=== PATIENT | male | born 1950 | race Two or more races ===

== ENCOUNTER 2024-06-16 13:08 | Emergency (ER) | payer MEDICARE, MEDICAID, SELFPAY ==
[2024-06-16 13:24] VITALS: BP 181/88; PULSE 62; RESP 18; TEMP 36.6; O2SAT 99
--- NOTE | 2024-06-16 13:32 | XR_ITS ---
Examination: PA lateral chest 2 views TECHNIQUE: Upright PA lateral chest 2 views Exam date and time: June 16, 2024 1346 hours INDICATIONS: Chest pain and shortness of breath intermittent 20 years FINDINGS: Normal heart size Mild hyperexpansion No pneumonia or pulmonary edema IMPRESSION: Mild hyperexpansion
--- NOTE | 2024-06-16 13:32 | EKG_ITS ---
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
--- NOTE | 2024-06-16 13:32 | PD.EDRME ---
Rapid Medical Screening Exam E Arrival date/time: 06/16/24 13:08 73-year-old male presents to the emergency department complains of cough, congestion, chest pain Chief Complaint: Chest Pain Time Seen by Provider: 06/16/24 13:18 Vital signs: Vital Signs Temperature 97.9 F 06/16/24 13:24 Pulse Rate 62 06/16/24 13:24 Respiratory Rate 18 06/16/24 13:24 Blood Pressure 181/88 H 06/16/24 13:24 Pulse Oximetry (%) 99 06/16/24 13:24 Oxygen Delivery Method Room Air 06/16/24 13:24
[2024-06-16 14:16] LABS: Basophils # (Auto) 0.1 Thou/mm3 (0.0-0.2); Basophils % (Auto) 1 % (0-2.5); Eosinophils # (Auto) 0.3 Thou/mm3 (0.0-0.5); Eosinophils % (Auto) 5 % (0-10); Hemoglobin 16.9 g/dL (13.5-16.0); Immature Granulocytes % (Auto) 0 % (0-0); Immature Granulocytes Auto 0.02 Thou/mm3 (0.00-0.00); Lymphocytes # (Auto) 2.3 Thou/mm3 (1.0-4.8); Lymphocytes % (Auto) 34 % (10-50); Mean Corpuscular HGB Conc 34.5 g/dl (31.0-37.0); Mean Corpuscular Hemoglobin 30.5 pg (25.0-35.0); Mean Corpuscular Volume 88 fL (80-100); Monocytes # (Auto) 0.6 Thou/mm3 (0.0-0.8); Monocytes % (Auto) 9 % (0-12); Neutrophils # (Auto) 3.5 Thou/mm3 (1.8-7.7); Neutrophils % (Auto) 51 % (37-80); Nucleated Red Blood Cell % 0 /100 WBC (0); Platelet Count 316 Thou/mm3 (140-440); RDW Standard Deviation 41.3 fL (35.1-43.9); Red Blood Count 5.54 Miln/mm3 (4.50-5.90); White Blood Count 6.8 Thou/mm3 (3.8-10.6)
[2024-06-16 14:38] LABS: INR 1.1 (0.9-1.3); Partial Thromboplastin Time 25.7 Seconds (22.0-36.0); Prothrombin Time 11.8 Seconds (9.0-12.2)
[2024-06-16 14:40] LABS: Alanine Aminotransferase 13 U/L (10-49); Albumin, Serum 4.5 gm/dL (3.4-4.8); Albumin/Globulin Ratio 2.8 (1.2-2.2); Alkaline Phosphatase 93 U/L (46-116); Anion Gap 7 (7-16); Aspartate Amino Transferase 20 U/L (0-34); B-Type Natriuretic Peptide 60 pg/mL (0-100); BUN/Creatinine Ratio 11 Ratio (12-20); Bilirubin,Total 1.8 mg/dL (0.3-1.2); Blood Urea Nitrogen 13 mg/dL (9-23); Carbon Dioxide 26.9 mMol/L (20.0-31.0); Chloride 107 mMol/L (98-107); Creatinine (Component) 1.2 mg/dL (0.6-1.3); Globulin 1.6 gm/dL (2.3-3.5); Glucose 103 mg/dL (74-106); Magnesium 2.3 mg/dL (1.6-2.6); Osmolality,Calculated 281 (275-295); Potassium 5.3 mMol/L (3.4-5.1); Sodium 141 mMol/L (136-145); Total Protein 6.1 gm/dL (5.7-8.2); Troponin I < 0.020 ng/mL (0.0-0.045); eGFR > 60 See Note
--- NOTE | 2024-06-16 15:58 | EKG_ITS ---
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
[2024-06-16 16:39] VITALS: BP 170/88; PULSE 58; RESP 18; TEMP 36.6; O2SAT 98
--- NOTE | 2024-06-16 17:06 | PD.EDADULT ---
ED General RME/HPI General Chief complaint: Chest Pain Stated complaint: CHEST/BACK PAIN, COUGH WITH PHLEGM, SOB Time Seen by Provider: 06/16/24 13:18 Arrival date/time: 06/16/24 13:08 CC: Chest pain and coughing up phlegm HPI ongoing for 1 year. Patient is here now because the last time this started he had pneumonia. Patient denies any cough shortness of breath or difficulty breathing. No other complaints at this time. Chest pain is more of a chest pressure 1-2 on a 10 scale. RME / HPI RME / HPI narrative: 06/16/24 13:08 73-year-old male presents to the emergency department complains of cough, congestion, chest pain Related Data Allergies Allergy/AdvReac Type Severity Reaction Status Date / Time No Known Allergies Allergy Verified 06/16/24 13:11 Review of Systems Review of Systems Narrative Review of Systems: GEN: No fever, no chills, no weight loss EYES: No discharge, no visual changes, no pain HEENT: No ear pain, no congestion, no sore throat PULM: No shortness of breath, no cough, no congestion CV: + chest pain, no dyspnea on exertion, no palpitations GI: No nausea, no vomiting, no diarrhea, no pain, no constipation : No frequency, no urgency, no dysuria MUSC/SKEL: No joint pain, no back pain SKIN: No rash PSYCH: No hallucinations, no depression HEME/LYMPH: No easy bleeding or bruising tendencies NEURO: No weakness, no headache Past Medical History Social History SMOKING STATUS: Never smoker ED Exam Narrative Physical exam: [General thin, but not in any acute distress Head normocephalic HEENT: Within acceptable limits Neck is supple nontender Chest equal chest rise nontender to palpation Respiratory: Clear to auscultation no wheezes crackles or rubs CV: Rate rhythm is regular no murmurs rubs or clicks Abdomen is soft nontender no masses positive bowel sounds all 4 quadrants Back: No CVA tenderness no spinous process tenderness from cervical spine thoracic and lumbar spine Skin: Intact no petechiae rash induration ulceration or crepitus Extremities: Moving all extremity against resistance cap refill less than 2 seconds neurosensory intact Neuro: Awake alert oriented x3 Glascow coma 15 no focal deficits] Course Quality Measures none Orders Category Date Time Status Bedside COVID-19 Antigen Test NOW Care 06/16/24 13:32 Active Bedside Influenza A&B Antigen Test NOW Care 06/16/24 13:32 Completed EKG (ED ONLY) *Do not use* NOW Care 06/16/24 13:32 Completed EKG (ED ONLY) *Do not use* NOW Care 06/16/24 15:58 Completed EKG (ED Only) Stat Exams 06/16/24 13:32 Draft EKG (ED Only) Stat Exams 06/16/24 15:58 Draft XR chest 2V Stat Exams 06/16/24 13:32 Completed B-Type Natriuretic Peptide Stat Lab 06/16/24 14:05 Completed CBC Stat Lab 06/16/24 14:05 Completed Comprehensive Metabolic Panel Stat Lab 06/16/24 14:05 Completed Magnesium Stat Lab 06/16/24 14:05 Completed Partial Thromboplastin Time Stat Lab 06/16/24 14:05 Completed Prothrombin Time with INR Stat Lab 06/16/24 14:05 Completed Troponin I Stat Lab 06/16/24 14:05 Completed Troponin I Stat Lab 06/16/24 16:20 Received Vital Signs Vital signs: Vital Signs Temperature 97.9 F 06/16/24 13:24 Pulse Rate 62 06/16/24 13:24 Respiratory Rate 18 06/16/24 13:24 Blood Pressure 181/88 H 06/16/24 13:24 Pulse Oximetry (%) 99 06/16/24 13:24 Oxygen Delivery Method Room Air 06/16/24 13:24 [facility] Patient data External records reviewed:: [facility] previous records Clinical information provided by:: patient and spouse Social determinants that could affect healthcare access:: none Patient has the following chronic illnesses:: None How is presenting disease/condition affected by chronic disease/condition?: uneffected by Evaluation data The following diagnostics were reviewed and interpreted by me:: lab results, radiology exam(s) and EKG tracing(s) Lab and/or radiology exams considered but not ordered:: EKG performed at 1346 shows a ventricular rate of 5 7 NJ interval 130 QRS of 9 8 QTc of 407 the sinus bradycardia Delta EKG shows performed at 1637 shows a ventricular rate of 5 6 NJ interval 137 QRS of 9 7 QTc of 400 sinus bradycardia. CBC shows no acute leukocytosis anemia thrombocytopenia CMP shows mildly elevated potassium at 5.3 otherwise no other acute electrolyte imbalances renal impairment transaminitis, T. bili of 1.8 Initial troponin is negative delta troponin is negative BNP is negative Coags within acceptable limits Interpretation Summary: Patient has a heart score of 1, patient will be discharged home follow-up with his primary care provider. Medications Medications considered but not ordered:: None Medication administrations:: None Consultations Consultation(s) initiated? (list below): No Diagnosis Differential Diagnosis ED Complaint MDM: ACS [place] pneumonia Most likely diagnosis given after review of the tests above:: Chest pain Admission Indicated Admission indicated?: not indicated Explain why admission is indicated or not indicated:: Stable Admission Request Was there a request for admission?: No Disposition Plan Disposition Plan: Discharge Discharge Attestation Discharge Attestation: The patient and all family members were given an opportunity to ask questions and understood the discharge instructions. Discharge instructions specifically effects, indications for sooner follow up or return to the emergency department, and the expected course of current diagnosis. Patient condition: Stable Medical Decision Making Differential Diagnosis Differential Diagnosis: ACS [place] pneumonia Lab Data 06/16/24 14:05 06/16/24 14:05 Labs: Lab Results 06/16/24 Range/Units 14:05 WBC 6.8 (3.8-10.6) Thou/mm3 RBC 5.54 (4.50-5.90) Miln/mm3 Hgb 16.9 H (13.5-16.0) g/dL Hct 49.0 (41.0-53.0) % MCV 88 (80-100) fL MCH 30.5 (25.0-35.0) pg MCHC 34.5 (31.0-37.0) g/dl RDW Std Deviation 41.3 (35.1-43.9) fL Plt Count 316 (140-440) Thou/mm3 Neut % (Auto) 51 (37-80) % Lymph % (Auto) 34 (10-50) % [place] % (Auto) 9 (0-12) % Eos % (Auto) 5 (0-10) % Baso % (Auto) 1 (0-2.5) % Neut # (Auto) 3.5 (1.8-7.7) Thou/mm3 Lymph # (Auto) 2.3 (1.0-4.8) Thou/mm3 [place] # (Auto) 0.6 (0.0-0.8) Thou/mm3 Eos # (Auto) 0.3 (0.0-0.5) Thou/mm3 Baso # (Auto) 0.1 (0.0-0.2) Thou/mm3 Immature Gran # (Auto) 0.02 H (0.00-0.00) Thou/mm3 Absolute Nucleated RBC 0.00 (0.00-0.00) Thou/mm3 Immature Gran % 0 (0-0) % Nucleated RBC % 0 (0) /100 WBC PT 11.8 (9.0-12.2) Seconds INR 1.1 (0.9-1.3) APTT 25.7 (22.0-36.0) Seconds Sodium 141 (136-145) mMol/L Potassium 5.3 H (3.4-5.1) mMol/L Chloride 107 (98-107) mMol/L Carbon Dioxide 26.9 (20.0-31.0) mMol/L Anion Gap 7 (7-16) BUN 13 (9-23) mg/dL Creatinine 1.2 (0.6-1.3) mg/dL Estim Creat Clear Calc Not Performed. eGFR > 60 (60 - ) See Note BUN/Creatinine Ratio 11 L (12-20) Ratio Glucose 103 (74-106) mg/dL Calculated Osmolality 281 (275-295) Calcium 10.0 (8.3-10.6) mg/dL Corrected Calcium 10.0 (8.5-10.1) mg/dL Magnesium 2.3 (1.6-2.6) mg/dL Total Bilirubin 1.8 H (0.3-1.2) mg/dL AST 20 (0-34) U/L ALT 13 (10-49) U/L Alkaline Phosphatase 93 (46-116) U/L Troponin I < 0.020 (0.0-0.045) ng/mL B-Natriuretic Peptide 60 (0-100) pg/mL Total Protein 6.1 (5.7-8.2) gm/dL Albumin 4.5 (3.4-4.8) gm/dL Globulin 1.6 L (2.3-3.5) gm/dL Albumin/Globulin Ratio 2.8 H (1.2-2.2) Discharge Plan Plan Patient Disposition: HOME (Self Care) Patient condition on transfer: Stable Prescriptions/Referrals Referrals: Blayne Bedolla [Primary Care Provider] - In 1 week Aleks Lr MD [Physician] - In 1 week Problem List Clinical Impression: Atypical chest pain Patient/Caregiver Discharge Instructions Education Materials: ED Chest Pain, Uncertain Cause Additional Instructions: Follow-up with your primary care provider if is worsening of symptoms return the emergency room for reevaluation. Print Language: Yemeni Stand Alone Forms: Kristy Award Info., Patient Portal Info Letter, Work/School Release PA/COMPUTER TRAINING SPECIALIST Supervising Physician PA/COMPUTER TRAINING SPECIALIST Supervising Physician: Prabhu Ocampo ENP
[2024-06-16 17:11] LABS: Troponin I < 0.020 ng/mL (0.0-0.045)
== END 2024-06-16 17:56 | disposition home or self-care (01) ==
PROVIDERS: Nurse Practitioner Primary Care; Registered Nurse General Practice; Emergency Provider Emergency Medicine; PCP Physician Assistant
DX: R07.89 Other chest pain (principal); R00.1 Bradycardia, unspecified
CPT/HCPCS: 36415; 71046; 80053; 83735; 83880; 84484; 85025; 85610; 85730; 87400; 87811; 93005; 99283

== ENCOUNTER → 2024-09-18 | Outpatient (CLI) | payer MEDICARE, MEDICAID, SELFPAY ==
--- NOTE | 2024-09-18 11:15 | XR_ITS ---
Examination: Retroperitoneal ultrasound, complete Technique: Multiple high resolution grayscale images of the retroperitoneum obtained, including kidneys and bladder. Exam date and time:September 18, 2024 1118 hours INDICATIONS: Nicotine dependence, flank pain pelvic pain months FINDINGS: Right kidney 9.5 cm in the cortex 2.1 cm Left kidney 9.6 cm renal cortex 2.0 cm Moderate renal parenchymal scar formation No hydronephrosis No bladder mass or bladder calculi Bladder prevoid by 20 37 cc Prostate gland 16.4 cc no prostate nodules IMPRESSION: Moderate bilateral renal pedicles scar formation, no hydronephrosis
== END | disposition home or self-care (01) ==
LOC: CDIM 10:37
PROVIDERS: PCP Family Medicine; Referring Provider Family Medicine; Visit Provider Family Medicine
DX: N28.89 Other specified disorders of kidney and ureter (principal); Z87.891 Personal history of nicotine dependence
CPT/HCPCS: 76770